=== PATIENT | female | born 1955 ===

== ENCOUNTER 2020-03-12 06:18 | Day surgery (SDC) | payer MEDICARE, OTHER ==
[~2020-03-12] VITALS: Ht 167.6 cm; Wt 54.7 kg
--- NOTE | 2020-03-12 06:37 | NUR ---
03/12/20 0637 Roro Mars PT ARRIVES AND STATES SHE HAS AN INFECTION ON LFET GÓMEZ AND WANTS TO ASK DR LOWRY FOR ANTIBIOTIC. WILL NOTIFY DR LOWRY.
== END 2020-03-12 07:30 | disposition home or self-care (01) ==
LOC: ORSCSDS 06:18
DX: G56.01 Carpal tunnel syndrome, right upper limb (principal); M65.30 Trigger finger, unspecified finger; Z53.9 Procedure and treatment not carried out, unspecified reason
CPT/HCPCS: J2250; J3010

== ENCOUNTER → 2020-03-12 | Outpatient (CLI) | payer MEDICARE, OTHER ==
[~2020-03-12] MED LIST: AMPDEX10CR PO; AMPDEX30CR PO; CALCIT950 PO; CHOL10002 PO; DIAZ5 PO; MARIJUANA; METH10 PO; MORP15ER PO; NITR100CA PO; OXYC5 PO; PROAIR DIGIHAL90 MCG; TETR250 PO; VOLTAREN ARTHRI20 GM TOP
== END | disposition home or self-care (01) ==
LOC: LAB 09:29 → LAB SHORT 09:29
DX: L08.9 Local infection of the skin and subcutaneous tissue, unspecified (principal)
CPT/HCPCS: 87070; 87075; 87077; 87147; 87186; 87205

== ENCOUNTER 2023-03-09 12:28 | Emergency (ER) | payer MEDICARE, OTHER ==
[~2023-03-09] VITALS: Ht 167.6 cm; Wt 54.4 kg
[~2023-03-09 12:28] MED LIST changes: +ONDA4ODT MM; +SULTRIDS PO
[2023-03-09 13:55] LABS: BASOPHILS ABSOLUTE AUTO 0.04 K/mm3 (0.00-0.23); BASOPHILS PERCENT AUTO 1 % (0-2); EOSINOPHILS PERCENT AUTO 0 % (0-6); Hematocrit 41.5 % (33.0-51.0); Hemoglobin 13.9 g/dL (11.5-16.0); IMMATURE GRAN ABSOLUTE AUTO 0.02 K/mm3 (0.00-0.10); IMMATURE GRAN PERCENT AUTO 0 % (0-1); LYMPHOCYTES ABSOLUTE AUTO 1.17 K/mm3 (0.84-5.20); LYMPHOCYTES PERCENT AUTO 19 % (21-46); MONOCYTES ABSOLUTE AUTO 0.69 K/mm3 (0.16-1.47); MONOCYTES PERCENT AUTO 11 % (4-13); Mean Corpuscular HGB 34.8 pg (26.0-34.0); Mean Corpuscular HGB Conc 33.5 g/dL (31.5-36.5); Mean Corpuscular Volume 104 fL (80-100); Mean Platelet Volume 12.4 fL (9.1-12.4); NEUTROPHILS ABSOLUTE AUTO 4.35 K/mm3 (1.96-9.15); NEUTROPHILS PERCENT AUTO 69 % (41-73); Platelet Count 109 K/mm3 (150-400); RDW Coefficient Variation 15.9 % (11.7-14.2); Red Blood Cell Count 3.99 M/mm3 (3.80-5.20); White Blood Cell Count 6.27 K/mm3 (4.00-11.30)
[2023-03-09 14:00] LABS: Albumin, Blood 3.2 g/dL (3.4-5.0); Albumin/Globulin Ratio 0.7 (0.8-1.8); Bilirubin, Total 1.3 mg/dL (0.1-1.0); Bun/Creatinine Ratio 15.1 (12.0-20.0); Calcium, Blood 8.6 mg/dL (8.5-10.1); Creatinine, Blood 0.73 mg/dL (0.40-1.00); Globulin, Blood 4.9 g/dL (2.2-4.0); Potassium, Blood 4.3 mmol/L (3.5-5.5); Total Protein, Blood 8.1 g/dL (6.4-8.2)
[2023-03-09] MEDS ORDERED: OMEP20ER PO (14:21)
[2023-03-09 14:30] VITALS: BP 175/115
[2023-03-09] MEDS ORDERED: ONDA4ODT MM (14:54)
[2023-03-09] MEDS ORDERED: CHLO25 PO ×2 (14:54→14:58)
[2023-03-09] MEDS ORDERED: FOLI1 PO (15:06)
[2023-03-09] MEDS ORDERED: B-1100 M1 PO (15:06)
== END 2023-03-09 15:11 | disposition home or self-care (01) ==
LOC: ER 12:28
PROVIDERS: Student in an Organized Health Care Education/Training Program
DX: F10.939 Alcohol use, unspecified with withdrawal, unspecified (principal); Z88.8 Allergy status to other drugs, medicaments and biological substances; Z88.1 Allergy status to other antibiotic agents; Z88.6 Allergy status to analgesic agent; Z79.899 Other long term (current) drug therapy; Z87.891 Personal history of nicotine dependence
CPT/HCPCS: 36415; 80053; 85025; 99283; A9270

== ENCOUNTER → 2023-04-13 | Outpatient (CLI) | payer MEDICARE, OTHER ==
[~2023-04-13] MED LIST changes: +B-1100 M1 PO; +CHLO25 PO; +FOLI1 PO; +OMEP20ER PO
[2023-04-14 10:56] LABS: Stool Occult Bld Immuno 1 Negative (NEGATIVE)
== END ==
LOC: LAB SHORT 13:39 → LAB 13:39
PROVIDERS: Physician Assistant
DX: R74.8 Abnormal levels of other serum enzymes (principal); R63.4 Abnormal weight loss
CPT/HCPCS: G0328